=== PATIENT | female | born 1990 | race Caucasian/White ===

== ENCOUNTER 2018-08-24 22:37 | Emergency (ER) | payer SELFPAY ==
[~2018-08-24] VITALS: Ht 162.6 cm; Wt 68.0 kg
--- OUTSIDE RECORDS SUMMARY | 2018-08-24 22:42 | XMS REPORT | CCD ---
Author Author RC SIMMONS Unknown Address [address] [place] [address] Care Team Providers Care Pipe Stripper Name Role Phone LUDIN MANRIQUEZ MD Attphys LUDIN MANRIQUEZ MD Prisurg Allergies Allergy Code Allergy Type Reaction Status CEFACLOR 0 Drug allergy Active CECLOR {Deactivated Allergy} 0 Drug allergy Active Active Medications Unknown or Not Available. Problems Unknown or Not Available. Procedures Unknown or Not Available. Results Unknown or Not Available. Function Status Unknown or Not Available. History of Immunizations Immunization Code Date DTP 01/23/1989 DTP 10/03/1989 OPV 01/23/1989 OPV 10/03/1989 Plan of Treatment Unknown or Not Available. Social History Smoking Status Code Start Date End Date Current every day smoker [id number] Vital Signs Unknown or Not Available. Function Status Unknown or Not Available. Goals Unknown or Not Available. ASSESSMENTS Unknown or Not Available. Health Concerns Section Unknown or Not Available.
--- OUTSIDE RECORDS SUMMARY | 2018-08-24 22:42 | XMS REPORT | CCD ---
Author Author RC SIMMONS Unknown Address [address] [address] [facility] [address] [place] [address] Care Team Providers Care Business Machine Operator Name Role Phone SHEFALI ESTEVEZ DO Attphys Allergies Allergy Code Allergy Type Reaction Status CEFACLOR 0 Drug allergy Active CECLOR {Deactivated Allergy} 0 Drug allergy Active Active Medications Unknown or Not Available. Problems Unknown or Not Available. Procedures Procedure Code Procedure Type Date FOOT [id number] 06/19/2017 Results Unknown or Not Available. Encounters Encounter Diagnosis Diagnosis Code Start Date Sprain of calcaneofibular ligament of left ankle, initial encounter [id number] 06/19/2017 Function Status Unknown or Not Available. History of Immunizations Immunization Code Date DTP 01/23/1989 DTP 10/03/1989 OPV 02 01/23/1989 OPV 10/03/1989 Plan of Treatment Unknown or Not Available. Social History Smoking Status Code Start Date End Date Current every day smoker [id number] Vital Signs Unknown or Not Available. Function Status Unknown or Not Available. Goals Unknown or Not Available. ASSESSMENTS Unknown or Not Available. Health Concerns Section Unknown or Not Available.
--- OUTSIDE RECORDS SUMMARY | 2018-08-24 22:43 | XMS REPORT | Continuity of Care Document ---
Author Author Formerly [facility] Address Unknown Phone Unavailable Allergies Active Description Code Type Severity Reaction Onset Reported/Identified Relationship to Patient Clinical Status Yes CECLOR [id number] BRANDNAME N/A N/A Yes CEFACLOR [id number] DRUG N/A N/A Yes Ceclor Drug Allergy N/A N/A 10/08/2011 Medications There is no data. Problems Date Dx Coded Attending Type Code Diagnosis Diagnosed By 10/08/2011 JEFE TAPIA DO 465.9 ACUTE UPPER RESPIRATORY INFECTIONS OF UNSPECIFIED SITE 10/08/2011 JEFE TAPIA DO V01.89 CONTACT WITH OR EXPOSURE TO OTHER COMMUNICABLE DISEASES 10/08/2011 CANELO BECKETT APRN 465.9 ACUTE UPPER RESPIRATORY INFECTIONS OF UNSPECIFIED SITE 10/08/2011 CANELO BECKETT APRN V01.89 CONTACT WITH OR EXPOSURE TO OTHER COMMUNICABLE DISEASES 03/23/2014 JEFE TAPIA DO 034.0 STREP THROAT 03/23/2014 CANELO BECKETT APRN 034.0 STREP THROAT Procedures Code [place] [address] STREP A (IN-HOUSE) 03/23/2014 Results There is no data. Encounters ACCT No. Visit Date/Time Discharge Status Pt. Type Provider Facility Loc./Unit Complaint [id number] 03/23/2014 08:34:00 03/23/2014 23:59:59 CLS Outpatient CANELO BECKETT APRN [id number] 03/23/2014 08:34:00 03/23/2014 23:59:59 CLS Outpatient JEFE TAPIA DO [id number] 09/11/2012 09:33:00 09/11/2012 12:23:00 DIS Emergency Gage Truong DO NAME [facility] [place] [id number] 06/19/2017 23:27:47 Document Registration [id number] 06/19/2017 23:20:07 Document Registration
--- OUTSIDE RECORDS SUMMARY | 2018-08-24 22:43 | XMS REPORT | CCD ---
Author RC Banegas Organization Unknown Address [address] [address] [address] [place] [address] Care Team Providers Care Insurance Administrator Name Role Phone JARREAU ER, SHEFALI DO Attphys [facility], SHEFALI DO Prisurg Allergies Allergy Code Allergy Type Reaction Status CEFACLOR 0 Drug allergy Active CECLOR 0 Drug allergy Active Active Medications Unknown or Not Available. Problems Unknown or Not Available. Procedures Unknown or Not Available. Results Unknown or Not Available. Function Status Unknown or Not Available. History of Immunizations Immunization Code Date DTP 01/23/1989 DTP 10/03/1989 OPV 02 01/23/1989 OPV 02 10/03/1989 Plan of Treatment Unknown or Not Available. Social History Smoking Status Code Start Date End Date Current every day smoker [id number] Vital Signs Unknown or Not Available. Function Status Unknown or Not Available. Goals Unknown or Not Available. ASSESSMENTS Unknown or Not Available. Health Concerns Section Unknown or Not Available.
--- OUTSIDE RECORDS SUMMARY | 2018-08-24 22:43 | XMS REPORT | CCD ---
Author RC Banegas Unknown Address [address] [place] [address] Care Team Providers Care Audograph Operator Name Role Phone PETER IRWIN, CANELO Smith Attphys CANELO GREEN MDsukirit Allergies Allergy Code Allergy Type Reaction Status CEFACLOR 0 Drug allergy Active CECLOR 0 Drug allergy Active Active Medications Unknown or Not Available. Problems Unknown or Not Available. Procedures Procedure Code Procedure Type Date CT HEAD W/O CONTRAST [id number] SNOMED CT 11/13/2016 Results Unknown or Not Available. Encounters Encounter Diagnosis Diagnosis Code Start Date Contusion of other part of head, initial encounter [id number] Function Status Unknown or Not Available. History of Immunizations Immunization Code Date DTP 01/23/1989 DTP 10/03/1989 OPV 02 01/23/1989 OPV 10/03/1989 Plan of Treatment Unknown or Not Available. Social History Smoking Status Code Start Date End Date Current every day smoker [id number] Vital Signs Unknown or Not Available. Function Status Unknown or Not Available. Goals Unknown or Not Available. ASSESSMENTS Unknown or Not Available. Health Concerns Section Unknown or Not Available.
[2018-08-24] MEDS ORDERED: LIDOCAINE 1% INJ 20 ML 20 ML VIAL INJ ONE (22:45)
--- NOTE | 2018-08-24 22:53 | ED Lower Extremity ---
General Chief Complaint: Laceration Stated Complaint: L BROW LAC Source: patient Exam Limitations: no limitations History of Present Illness Date Seen by Provider: Aug 24, 2018 Time Seen by Provider: 22:48 Initial Comments To ER with a laceration to the lateral aspect of the left eyebrow. This occurred about 2:30 PM today when she slipped on one of her children's toys and struck this area on the countertop at home. No loss of consciousness. Tetanus is up-to-date. She is worried because her told her she might need stitches. Onset: this afternoon Severity: mild Method of Injury: fell Allergies and Home Medications Allergies Coded Allergies: No Known Drug Allergies (Unverified , 08/24/18) Patient Home Medication List Home Medication List Reviewed: Yes Review of Systems Constitutional: see HPI EENTM: see HPI Respiratory: no symptoms reported Cardiovascular: no symptoms reported Genitourinary: no symptoms reported Musculoskeletal: no symptoms reported Skin: no symptoms reported Psychiatric/Neurological: No Symptoms Reported Past [id number]-[id number] Hx Patient Social History Recent Foreign Travel: No Contact w/Someone Who Travel: No Physical Exam Vital Signs Capillary Refill : Height, Weight, BMI Height: '" Weight: lbs. oz. kg; BMI Method: General Appearance: WD/WN, no apparent distress HEENT: PERRL/EOMI, normal ENT inspection, TMs normal, pharynx normal, other ( no hemotympanum, no Rajan's sign, no raccoon eyes. There is some ecchymosis around the lateral aspect of the left eyebrow. There is a vertically oriented 2 cm laceration which appears to be fairly shallow and does not require suture. This is clean and dry. There is eschar within the middle of this.) Neck: non-tender, full range of motion Respiratory: normal breath sounds, no respiratory distress, no accessory muscle use Gastrointestinal: normal bowel sounds, soft Hips: bilateral hip non-tender, bilateral hip normal inspection, bilateral hip normal range of motion Legs: bilateral leg non-tender, bilateral leg normal inspection, bilateral leg normal range of motion Knees: bilateral knee non-tender, bilateral knee normal inspection, bilateral knee normal range of motion Neurologic/Psychiatric: alert, normal mood/affect, oriented x 3 Skin: normal color, warm/dry Progress/Results/Core Measures Results/Orders My Orders Orders - TRAVIS PRICE APRN Lidocaine 1% Inj 20 Ml (Xylocaine 1% Inj (08/24/18 22:45) Departure Impression Primary Impression: Superficial laceration of face Disposition: 01 HOME, SELF-CARE Condition: Stable Departure-Patient Inst. Decision time for Depature: 22:52 Referrals: NO,LOCAL PHYSICIAN (PCP/Family) Primary Care Physician Patient Instructions: Wound Care Add. Discharge Instructions: 1. Keep an eye on this for any sign of infection such as redness or swelling. This may warrant antibiotics at that time. Return to ER for any concerns. All discharge instructions reviewed with patient and/or family. Voiced understanding. TRAVIS PRICE APRN Aug 24, 2018 22:53
[2018-08-24 23:03] VITALS: BP 144/99
== END 2018-08-24 23:03 | disposition home or self-care (01) ==
LOC: EDUNIT# 22:37 → ER 22:38
DX: S01.111A Laceration without foreign body of right eyelid and periocular area, initial encounter (principal); W01.198A Fall on same level from slipping, tripping and stumbling with subsequent striking against other object, initial encounter
CPT/HCPCS: 99282